=== PATIENT | female | born 1950 | race Caucasian/White ===

== ENCOUNTER 2017-02-14 08:29 | Outpatient (CLI) | payer MEDICARE, OTHER ==
[~2017-02-14] VITALS: Ht 166.4 cm; Wt 73.1 kg
--- NOTE | ~2017-02-14 | CATH ---
Cardiac Diagnostic Report Demographics Patient Name ALFA Wallace Gender Female Date of 1950 Age 66 year(s) Patient Number [id number] Date of Study 02/14/2017 Visit Number [id number] Room Number G6399 [place] [id number] Ht 165.1 cm Wt 73.1 kg Referring Clare Boss MD Primary Physician Physician Performing Efstratiou Secondary Physician Physician Alejandra Wallace MD Diagnostic Efstratiou Assisting Physician Physician Alejandra Wallace MD Interventional Physician Poured Wall Foreman Physician Findings and Conclusions Diagnostic Findings and Conclusion No significant CAD Diagnostic Recommendations Add low dose statin Procedure Description The patient was brought to the diagnostic cardiac catheterization-EP laboratory in the fasting, non-sedated state. Informed consent was obtained in the written and verbal form after the risks and benefits were explained. The patient had no further questions and agreed to proceed. The planned puncture-incision site(s) were shaved and prepped with ChloraPrep and draped in the usual sterile manner. Conscious sedation, supplemental oxygen, and pain control medications were delivered by a registered nurse under physician guidance. Surface ECG rhythm, blood pressure measurement, and pulse oximetry were monitored throughout the procedure. Arterial access. The access site was infiltrated with lidocaine. The vessel was entered with the Seldinger technique. A sheath was advanced into the vessel and used for catheter placement. Selective left coronary angiography. A catheter was advanced into the left coronary vessel ostium under Fluoroscopic guidance. Contrast was injected by hand. Images were obtained in multiple projections. Selective right coronary angiography. A catheter was advanced into the right coronary vessel ostium under fluoroscopic guidance. Contrast was injected by hand. Images were obtained in multiple projections. Arterial artery hemostasis was achieved. The patient was transferred to a regular nursing floor via cart accompanied by a nurse. The patient left the laboratory in stable condition. Diagnostic Cath Status: Elective Procedure Procedure Type Diagnostic procedure:Angiography:, Coronary Angios Indications: Atypical Chest Pain. The procedure was explained in detail to the patient. Risks, complications and alternative treatments were reviewed. Written consent was obtained. Medications Reviewed with Patient prior to Procedure. Angiographic Findings Dominance: Right Cardiac Arteries and Lesion Findings LMCA: Normal (0% Stenosis). LAD: Abnormal.The 1st Diag appears normal. Lesion on Mid LAD: 20% stenosis . LCx: Normal (0% Stenosis).The 1st ob Loan appears normal. RCA: Abnormal.The R PDA appears abnormal. The R PL appears abnormal. Lesion on R PDA: 20% stenosis . Lesion on 1st RPL: 20% stenosis . Coronary Tree Procedure Data Procedure Date Date: 02/14/2017Start: 12:00 PMEnd: 12:40 PM Entry Locations - The Right Radial artery access attempt was not successful. Entry Comments: Unable to advance wire. Changing to femoral access.. Closure Comments: 11ml air in the band. Victoria. - Antegrade Percutaneous access was performed through the Right Femoral artery (Primary location). A 6 Fr sheath was inserted. Closure Comments: Dr. Chappell. Procedure Medications Order and Administration + + + + + !Time !Medication !Dosage !Route ! + + + + + !02/14/2017 11:47 !Fentanyl !25 mcg !I.V. ! !AM ! ! ! ! + + + + + !02/14/2017 11:59 !Versed !0.5 mg !I.V. ! !AM ! ! ! ! + + + + + !02/14/2017 12:01 !Versed !0.5 mg !I.V. ! !PM ! ! ! ! + + + + + !02/14/2017 12:06 !Radial Verapamil !3 mg !I.A. ! !PM ! ! ! ! + + + + + !02/14/2017 12:07 !Radial Heparin (ACC_3) !5000 units!I.A. ! !PM ! ! ! ! + + + + + !02/14/2017 12:07 !Radial Nitroglycerin !50 mcg !I.A. ! !PM ! ! ! ! + + + + + !02/14/2017 12:08 !0.9% NaCl !200 ml !I.V. bolus ! !PM ! ! ! ! + + + + + !02/14/2017 12:13 !Versed !1 mg !I.V. ! !PM ! ! ! ! + + + + + !02/14/2017 12:14 !Fentanyl !25 mcg !I.V. ! !PM ! ! ! ! + + + + + !02/14/2017 12:32 !D5W 1000ml w/ 150 mEq Sodium !200 ml !I.V. bolus ! !PM !Bicarb ! ! ! + + + + + Devices Used - A6 Fr. BS JR 4 Diag. Catheterwas used for:Right coronary angiography. - A6 Fr. BS JL 3.5 Diag. Catheterwas used for:Left coronary angiography. Contrast Material - Isovue 55447 ml Fluoroscopy Time: Diagnostic: 4:48 minutes. Total: 4:48 minutes. Estimated Blood Loss: 15 ml. Medical History Performed Procedures and Imaging Results - Stress testing with SPECT MPIwas performed. Results were: Negative. Allergies - Penicillin. - Other:(Librax). - Other:(Reglan). - Codiene. Risk Factors The patient risk factors include:obesity, physical activity, hypercholesterolemia, family history of premature CAD, last creatinine: 1.3 mg/dl, creatinine clearance: 49.79 ml/min and dyslipidemia. Admission Data Admission Date: 02/14/2017 Admission Time: 08:29 AM Insurance Payors: Medicare. Admission Medications + +------+------+ + + + + !Medication !Dosage!Times !Last !Last !Administered !Comments ! ! ! !Per !Delivery !Delivery ! ! ! ! ! !Day !Date !Time ! ! ! + +------+------+ + + + + !Aspirin ! ! ! ! ! ! ! !(any) ! ! ! ! ! ! ! + +------+------+ + + + + !Beta ! ! ! ! ! ! ! !Stan ! ! ! ! ! ! ! !(any) ! ! ! ! ! ! ! + +------+------+ + + + + Clinical Evaluation Leading to Procedure - The patient's CAD presentation was assessed as: Unstable angina. - The patient's anginal syndrome during the past two weeks was assessed as: Class IV according to the [place] Cardiovascular Society Classification System (CCS). Anti-anginal medications were prescribed during the past two weeks. The medication is: Beta Blockers. Snapshots Hemodynamics Condition: Rest O2 Consumption: Estimated: 172.58Heart Rate: 76 bpm Pressures (mmHg) +-----+ + !Site !Pressure ! +-----+ + !AO !81/50 (65) ! +-----+ + !AO !103/53 (78) ! +-----+ + Shunts Oxygen Values O2 Capacity 152.32 O2 Consumption 172.58 Discharge Data Discharge Date: 02/14/2017 Hospital Status: Outpatient Signatures dtt: Kirk Chappell dtd: 02/14/17 1200 Physician Self Edit
[~2017-02-14 08:29] MED LIST: ASPIRIN EC81 MG PO; ATIVAN 1 MG1 MG PO; BENADRYL25 MG PO; CALCIUM CARBON600 MG PO; DEMADEX20 MG PO; ELAVIL **IA 9100 MG PO; FLEXERIL10 MG PO; IMITREX50 MG PO; IMITREX6 MG/0.51 IM; K-TAB 10MEQ10 MEQ PO; KEFLEX500 MG PO; LEVOTHROID (S125 MCG PO; MAG-OX-400(241400 MG PO; NORCO 5-325 MG1 TAB PO; NORCO 7.5-3251 EACH PO; PERCOCET 5-3251 EACH PO; PRILOSEC20 MG PO; REQUIP2 MG PO; TOPROL XL25 MG PO; VITAMIN D1000 UNIT PO; WELLBUTRIN75 MG PO; ZAROXOLYN5 MG PO
[2017-02-14 09:50] LABS: BASOPHIL # 0.1 K/uL (0.0-0.2); BASOPHIL % 0.6 %; EOSINOPHIL # 0.1 K/uL (0.0-0.5); EOSINOPHIL % 1.6 %; HEMATOCRIT 35.6 % (33.0-46.0); HEMOGLOBIN 11.2 g/dL (10.0-15.0); IMMATURE GRANULOCYTE # 0.3 K/uL (0.0-0.3); IMMATURE GRANULOCYTE % 3.4 %; LYMPHOCYTE # 1.2 K/uL (0.8-4.0); LYMPHOCYTE % 15.3 %; MCH 29.9 pg (27.0-34.0); MCHC 31.5 gm/dL (32.0-36.5); MCV 95.2 fl (83.0-98.0); MONOCYTE # 0.6 K/uL (0.0-1.0); MONOCYTE % 7.5 %; MPV 9.9 fl (9.4-12.4); NEUTROPHIL # (ANC) 5.7 K/uL (1.8-7.8); NEUTROPHIL % 71.6 %; NRBC % 0 /100WBC (0-0.00); PLATELET COUNT 191 K/uL (150-450); RBC 3.74 M/uL (3.50-5.50); RDW-CV 14.6 % (11.9-14.6)
[2017-02-14 10:05] LABS: PROTIME 9.9 SECONDS (9.6-11.1); PTT 21 SECONDS (25-32)
[2017-02-14 10:06] LABS: ALBUMIN 2.7 gm/dL (3.5-5.0); ANION GAP 7.9 (10.0-19.0); CALCIUM 7.5 mg/dL (8.5-10.5); CREATININE 1.3 mg/dL (0.5-1.1); POTASSIUM 3.9 mMol/L (3.7-5.1); TOTAL BILIRUBIN 0.2 mg/dL (0.0-1.5); TOTAL PROTEIN 5.5 g/dL (6.0-8.4)
[2017-03-07] MEDS ORDERED: LIPITOR10 MG PO (09:30)
[2017-03-07] MEDS ORDERED: DILAUDID 2MG(HYD2 MG PO (09:31)
== END 2017-02-14 15:50 | disposition disaster alternative care site (69) ==
LOC: GPCU 08:29 → GCAT 08:29 → GPOC 09:00 → GCAT 15:50
PROVIDERS: Internal Medicine Cardiovascular Disease
PROC: B2111ZZ Fluoroscopy of Multiple Coronary Arteries using Low Osmolar Contrast (ICD-10-PCS; principal; 2017-02-14)
DX: R07.9 Chest pain, unspecified (principal); R94.39 Abnormal result of other cardiovascular function study; E78.00 Pure hypercholesterolemia, unspecified; N18.4 Chronic kidney disease, stage 4 (severe); E66.9 Obesity, unspecified; M19.90 Unspecified osteoarthritis, unspecified site; G43.909 Migraine, unspecified, not intractable, without status migrainosus; Z90.49 Acquired absence of other specified parts of digestive tract; Z90.3 Acquired absence of stomach [part of]; Z87.11 Personal history of peptic ulcer disease; Z79.82 Long term (current) use of aspirin; Z79.899 Other long term (current) drug therapy; Z93.2 Ileostomy status; Z82.49 Family history of ischemic heart disease and other diseases of the circulatory system
CPT/HCPCS: C1760; C1894; J1644; J2001; J2250; J3010; J7030; J7050; J7060

== ENCOUNTER → 2017-02-26 | Outpatient (CLI) | payer MEDICARE, OTHER ==
[~2017-02-26] MED LIST changes: +DILAUDID 2MG(HYD2 MG PO; +LIPITOR10 MG PO
== END | disposition disaster alternative care site (69) ==
LOC: GRAD 14:40
DX: M84.48XA Pathological fracture, other site, initial encounter for fracture (principal); Z98.890 Other specified postprocedural states

== ENCOUNTER → 2017-03-08 | Day surgery (SDC) | payer MEDICARE, OTHER ==
[~2017-03-08] VITALS: Ht 166.4 cm; Wt 74.6 kg
--- NOTE | ~2017-03-08 | OR ---
PATIENT'S NAME: SAMM GRIMM [facility] AGE: 66 Y [address] ROOM: [place] [address] LOCATION: [facility] [place] ADMIT DATE: 03/08/2017 OR/Procedure Report DISCHARGE DATE: FAMILY PHYSICIAN: BREONNA WHELAN MD ATTENDING PHYSICIAN: Sandee Dalton SURGEON: Fidel Floyd MD [employer] EQUIPMENT: DATE OF PROCEDURE: 03/08/2017 PROCEDURE: Left L4 transforaminal epidural steroid injection. INDICATION: The patient has a lumbar disk disease with radiculopathy, spondylolisthesis, canal stenosis, herniated disk, and prior L5-S1 fusion. The patient was in significant amount of pain prior to the procedure. We elected to try the left L4 epidural injection because her pain is most severe on the left side and she has had prior L4-5 microdiskectomy on the right, right hemilaminectomy, and L5-S1 fusion. Risks, benefits, and alternatives were explained to the patient. She wished to proceed. She was taken to the procedure room and placed in prone position. Betadine x3 was used to clean the area. Sterile drape was applied on top. Fluoroscopy was used to identify the L4 left transforaminal opening. 3 mL of 1% local anesthetic was utilized to numb the skin. Next a 22-gauge 3.5 inch spinal needle was advanced using fluoroscopic guidance. Once the needle was felt to be in position, 1 mL of Isovue was injected in the AP and lateral positions. This showed a reasonable good epidural spread. No vascular uptake. No intrathecal uptake. Next, a mixture of 10 mg of preservative-free Decadron and 2 mL of 2% lidocaine were injected without complication. A stylette was placed and the needle removed. Hemostasis was achieved. The patient felt some immediate relief of her pain symptoms, and she will follow up with Dr. Dalton in approximately 2 weeks. FIDEL FLOYD MD JJP/modl /[id number] d: 03/08/172146 t: 03/13/17 1717, OPERATIVE SUMMARY
== END | disposition disaster alternative care site (69) ==
LOC: GPOC 03-07 09:00 → GSDC 09:00
PROC: 3E0R3BZ Introduction of Anesthetic Agent into Spinal Canal, Percutaneous Approach (ICD-10-PCS; principal; 2017-03-08)
PROC: 3E0R33Z Introduction of Anti-inflammatory into Spinal Canal, Percutaneous Approach (ICD-10-PCS; 2017-03-08)
DX: M51.16 Intervertebral disc disorders with radiculopathy, lumbar region (principal); M96.1 Postlaminectomy syndrome, not elsewhere classified; M47.26 Other spondylosis with radiculopathy, lumbar region; Z79.899 Other long term (current) drug therapy; Z88.0 Allergy status to penicillin; Z88.8 Allergy status to other drugs, medicaments and biological substances; N19 Unspecified kidney failure; Z90.49 Acquired absence of other specified parts of digestive tract; Z98.890 Other specified postprocedural states; Z93.3 Colostomy status
CPT/HCPCS: J1100

== ENCOUNTER → 2017-03-19 | Outpatient (CLI) | payer MEDICARE, OTHER | END | disposition disaster alternative care site (69) | LOC: GRAD 15:19 | DX: R79.1 Abnormal coagulation profile (principal) | CPT/HCPCS: A9539; A9540 ==